=== PATIENT | male | born 1970 | race Caucasian/White ===

== ENCOUNTER 2019-07-24 11:35 | Emergency (ER) | payer OTHER, SELFPAY ==
[~2019-07-24] VITALS: Ht 180.3 cm; Wt 67.5 kg
[2019-07-24 11:43] VITALS: BP 131/86
[2019-07-24 12:32] LABS: BASOPHILS # (AUTO) 0.04 x10^3/uL (0-0.1); BASOPHILS % (AUTO) 0 % (0-1); EOSINOPHILS # (AUTO) 0.05 x10^3/uL (0-0.4); EOSINOPHILS % (AUTO) 0 % (1-7); LYMPHOCYTES # (AUTO) 2.19 x10^3/uL (1-3.4); LYMPHOCYTES % (AUTO) 19 % (22-44); MD NO; MEAN CORPUSCULAR HEMOGLOBIN 28.1 pg (27.5-34.5); MEAN CORPUSCULAR HGB CONC 33.3 g/dL (33.2-36.2); MEAN CORPUSCULAR VOLUME 84.4 fL (81-97); MEAN PLATELET VOLUME 7.8 fL (7.4-10.4); MONOCYTES # (AUTO) 0.69 x10^3/uL (0.2-0.8); MONOCYTES % (AUTO) 6 % (2-9); NEUTROPHILS # (AUTO) 8.48 x10^3/uL (1.8-6.8); NEUTROPHILS % (AUTO) 74 % (42-75); PLATELET COUNT 435 x10^3/uL (130-400); RED BLOOD COUNT 5.18 x10^6/uL (4.38-5.82); RED CELL DISTRIBUTION WIDTH 13.8 % (9.4-14.8)
[2019-07-24 12:44] LABS: ALBUMIN 3.9 g/dL (3.4-5.0); ANION GAP 10 mmol/L (5-15); CALCIUM 9.8 mg/dL (8.5-10.1); CHLORIDE 108 mmol/L (98-107)
[2019-07-24 12:49] LABS: ALANINE AMINOTRANSFERASE 25 U/L (12-78); ALKALINE PHOSPHATASE 122 U/L (45-117); BILIRUBIN,TOTAL 1.1 mg/dL (0.2-1.0); CREATININE 1.27 mg/dL (0.7-1.3); TOTAL PROTEIN 7.7 g/dL (6.4-8.2)
--- NOTE | 2019-07-24 13:56 | NUR ---
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
--- NOTE | 2019-07-24 14:30 | NUR ---
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
--- NOTE | 2019-07-24 15:03 | NUR ---
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
== END 2019-07-24 15:05 | disposition left against medical advice (07) ==
LOC: ED 15:00
DX: F15.90 Other stimulant use, unspecified, uncomplicated (principal); F41.9 Anxiety disorder, unspecified
CPT/HCPCS: 36415; 80053; 83655; 85025; 99283